=== PATIENT | male | born 1995 | race Caucasian/White ===

== ENCOUNTER 2020-09-08 14:20 | Emergency (ER) | payer SELFPAY ==
[2020-09-08 14:44] VITALS: BP 124/77; PULSE 87; RESP 14; TEMP 36.6; O2SAT 99; BMI 25.0
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
[2020-09-08] MEDS: HYDROcodone-acetaminophen 7.5-325 mg Tablet 1 TAB PO (15:27)
--- NOTE | 2020-09-08 16:05 | PC.NURSE ---
Pt to XR via WC
--- NOTE | 2020-09-09 09:45 | DCPLANNER ---
network operations manager had message to schedule a follow up appointment for patient with ortho. network operations manager called the ortho clinic, spoke with Rita, gave clinic patients information. network operations manager was told that patients information would be printed and reviewed. Clinic will call patient with appointment information.
--- NOTE | 2020-09-10 07:32 | DCPLANNER ---
Patient has a follow up appointment scheduled for Thursday, September 10, 2020 at 10:[address] Gonzalez at ortho. Clinic will call patient with appointment information.
--- NOTE | 2020-10-11 14:53 | DCPLANNER ---
Patient had a follow up appointment scheduled for 09.10.20 with ortho - appointment was cancelled.
== END 2020-09-08 16:40 | disposition home or self-care (01) ==
PROVIDERS: Emergency Provider Physician Assistant
DX: M79.605 Pain in left leg (principal)
CPT/HCPCS: 12345; 73590; 99282; 99283; E0114

== ENCOUNTER → 2020-11-26 11:04 | Outpatient (BNVA) | payer SELFPAY | PROVIDERS: Visit Provider Nurse Practitioner Family | DX: A64 Unspecified sexually transmitted disease (principal); B99.9 Unspecified infectious disease; Q38.6 Other congenital malformations of mouth | CPT/HCPCS: 87491; 87591; 87661 ==